=== PATIENT | female | born 1945 | race Caucasian/White ===

== ENCOUNTER 2025-05-06 08:41 | Outpatient (OUT) | payer MEDICARE, SELFPAY ==
--- OUTSIDE RECORDS SUMMARY | 2025-05-04 20:03 | XMS_ITS | Continuity of Care Document ---
Author Organization [facility] Address [address] [place] [address] Phone Care Team Providers Care Underlay Stitcher Name Role Phone Claude Horta MD Primary Care Provider [phone] Self, Referral Attending Provider Unavailable Care Teams Patient Care Team Team Status: Active Member Role/Relationship Status Dates Claude Horta MD Primary Care Provider Active Visit Care Team Team Status: Inactive Member Role/Relationship Status Dates Claude Horta MD Primary Care Provider Active Start: May 04, 2025 End: May 04, 2025Referral SelfAttending ProviderActiveStart: May 04, 2025 End: May 04, 2025 Chief Complaint and Reason for Visit Chief Complaint Admit Date Screening May 04, 2025 1:30pm Allergies, Adverse Reactions, Alerts Allergen Type Severity Reaction Last Updated Verified Status Sulfa (Sulfonamide Antibiotics) Allergy Unknown Rash May 22 2:53pm Yes Active Social History Smoking Status Status Start Date End Date Date of Observa tion Never smoked tobacco (finding) May 22, 2024 4:05pm Observation Status Observation Response Date of Response Legal Sex Female (finding) Sex Assigned At [facility] 1945 Problems Inactive/Resolved Problems Problem Diagnosis/Recorded Date Onset Date Stat us [facility] May 22, 2024 4:52pm Unknown Res olved Procedures Procedure Date Performed Status MM screening mammo BI w/CAD May 04, 2025 1:32pm completed Relevant Diagnostic Tests and/or Laboratory Data Diagnostic Imaging Reports Author Horacio Echevarria [facility]Report Date/TimeDecember 2024 1:51pm [facility] [address] [place] [address] [place] [id number] Mammography Report Signed Patient: Rebecca Pace MR#: [id number] : 1945 Acct:[id number] Age/Sex: 79 / F Adm Date: 5 Loc: [place] Room: Type: [facility] Attending Dr: Referral Self Ordering Provider: SELF,REFERRAL Date of Service: 05/04/25 Procedure(s): MM screening mammo BI w/CAD Accession Number(s): ([id number]) MM/MM screening mammo BI w/CAD: SCREENING Copies to: Claude Horta MD SELF,REFERRAL ~ BILATERAL Screening Full Field digital mammogram with 3-D imaging. Full field digital CC and MLO imaging performed. CAD utilized. COMPARISON: 04/22/2024 HISTORY: Annual screening BREAST COMPOSITION: The breast parenchyma is heterogeneously dense. BREAST CALCIFICATIONS: Benign calcifications present. VASCULAR CALCIFICATIONS: Present ARCHITECTURAL DISTORTION: None BREAST NODULE: None AXILLARY LYMPH NODES: Normal POSTSURGICAL CHANGES: None MM/MM screening mammo BI w/CAD IMPRESSION: No mammographic evidence of malignancy. Routine follow-up recommended in one year. RESULT CODE: 2 Benign Findings(s) DENSITY CODE: 3 (approximately 51-75% glandular) The breasts are heterogeneouslydense, which may obscure small masses. FOLLOW UP: 1YR THE FALSE-NEGATIVE RATE OF MAMMOGRAPHY IS APPROXIMATELY 10%. IMAGING OF A PALPABLE ABNORMALITY MUST BE BASED ON CLINICAL GROUNDS. PATIENT WAS ENTERED INTO A REMINDER SYSTEM WITH A TARGET DUE DATE FOR THE NEXT MAMMOGRAM. Impression dictated by: Horacio Echevarria M.D. 05/04/2025 1:51 PM Dictation Location: [facility] Dictated By: Horacio Echevarria DO 05/04/25 1349 Signed By: <Electronically signed by Horacio Echevarria DO in OV> 05/04/25 1351 Advance Directives Advance Directive Response Recorded Date/ Time Advance Directives No August 05 9:35am Insurance Providers Guarantor Ashanti Wagner Address [address] [place] [id number] Info.Home Phone: Coverage Status Update:2024 Payer Group Member ID Coverage Type Subscriber Relationship to Subscriber Effective Date Expiration Date Medicare [id number] Dennis , M Id: [id number] [address] [place] [facility] Home Phone: Email: [id number] MCR PFFS Id: [id number] Dennis , M Id: [id number] [address] [place] [facility] Home Phone: Email: [id number] Gold Plus HMO Id: [id number] Dennis , M Id: [id number] [address] [place] [address] Home Phone: Email: [id number] Health Claims [id number] Dennis , M Id: [id number] [address] [place] [address] Home Phone: Email: [id number] [place] [employer] Id: [id number] Dennis , M Id: [id number] [address] [place] [address] Home Phone: Email: [id number] Encounters Encounter Location(s) Arrival/Admit Date Discharge/Departure Date Discharge/Departure Disposition Provider(s) [facility] May 04, 2025 1:30pm May 04, 2025 1:31pm Discharged to home care or self care (routine discharge) REFERRAL SELF
--- OUTSIDE RECORDS SUMMARY | 2025-05-06 08:49 | XMS_ITS | Clinical Summary ---
Author Organization [employer] Address [id number] [address] [place] [address] Care Team Providers Care Hot Dog Vender Name Role Phone Claude Horta MD Primary Care Provider [phone] Allergies Active AllergyReactionsCriticalityNoted DateCommentsSulfa (Sulfonamide Antibiotics)03/10/2020 Itching, rash Medications MedicationSigDispense QuantityRefillsLast FilledStart DateEnd DateStatus acyclovir (ZOVIRAX) 400 mg tablet Take 400 mg by mouth daily.Active amLODIPine (NORVASC) 5 mg tablet Take 5 mg by mouth daily.Active benazepriL (LOTENSIN) 40 MG tablet Take 40 mg by mouth daily.Active loteprednol (LOTEMAX) 0.5 % ophthalmic suspension Administer 1 drop to both eyes 4 (four) times a day.Active levothyroxine (EUTHYROX) 50 MCG tablet Take 50 mcg by mouth daily.Active dorzolamide (TRUSOPT) 2 % ophthalmic solution Administer 1 drop to both eyes 3 (three) times a day.Active cycloSPORINE (RESTASIS) 0.05 % ophthalmic emulsion Administer 1 drop to both eyes 2 (two) times a day.Active Active Problems ProblemNoted DateDiagnosed DatePrimary localized osteoarthritis of right knee 1Primary osteoarthritis of left knee04/05/2020 Family History Medical HistoryRelationNameCommentsCancerFatherCancerMotherRelationNameStatus CommentsFatherMother Social History Tobacco UseTypesPacks/DayYears UsedDateSmoking Tobacco: NeverSmokeless Tobacco: NeverAlcohol UseStandard Drinks/WeekCommentsNever0 (1 standard drink = 0.6 oz pure alcohol)AUDIT-CAnswerDate RecordedQ1: How often do you have a drink containing alcohol?Never03/10/2020Average Number of DrinksNot on file03/10/2020 Frequency of Binge DrinkingNot on file03/10/2020Overall Financial Resource Strain (CARDIA)AnswerDate RecordedHow hard is it for you to pay for the very basics like food, housing, medical care, and heating?Not hard at all04/06/2020 PHQ-2AnswerDate RecordedTotal Ehzyc79506/06/2019PRAPARE - TransportationAnswerDate RecordedIn the past 12 months, has lack of transportation kept you from medical appointments or from getting medications?No04/06/2020In the past 12 months, has lack of transportation kept you from meetings, work, or from getting things needed for daily living?No04/06/2020ChildcareAnswerDate RecordedDo problems getting children's counselor make it difficult for you to work or study?No04/06/2020 EmploymentAnswerDate RecordedDo you need help finding a local career center and/or a training program?No04/06/2020Purpose - LifeAnswerDate RecordedPurpose and direction in azimYcseniq35/11/2021CommentsNoSex and Gender InformationValueDate RecordedSex Assigned at BirthNot on fileLegal SexFemale 02/24/2020 11:48 AM EDTGender IdentityNot on fileSexual OrientationNot on file Last Filed Vital Signs Vital SignReadingTime TakenCommentsBlood Blyozrke538/561 7:26 AM EDT Mfuje535203/16/2021 7:26 AM PGLLecoskwefdm09.4 ??C (97.5 ??F)03/16/2021 7:26 AM EDTRespiratory Tjzb1033 7:26 AM EDTOxygen Gqkfbtwlkd12%03/16/2021 7:26 AM EDTInhaled Oxygen Concentration--Rpycyj11.8 kg (145 lb)03/15/2021 2:22 PM EDT Yrqxxw979.1 cm (5' 5 )03/15/2021 2:22 PM EDTBody Mass Index24.131 2:22 PM EDT Plan of Treatment Health MaintenanceDue DateLast DoneCommentsDepression Guhapupmg71/12/1960Tobacco Gmyjsrquy83/12/1960DTaP,Tdap and Td Vaccines (1 - Tdap)1966Zoster (Shingles) Vaccine (1 of 2)1997Fall Risk Ambkdnayd39/12/2013RSV ( or age 60+ yrs) (1 - 1-dose 75+ series)3COVID-19 Vaccine (2 - 2024- season)Influenza Fefzlsd4701/18/2025 Goals GoalPatient Goal TypeAssociated ProblemsRecent ProgressPatient-Stated?Author home Renetta Grimes LSW Note: Evaluation of progress towards goal: had therapy, up in chair, doing well Medical Devices ImplantedTypeAreaManufacturerDevice IdentifierShelf Expiration DateModel / Serial / LotCmnt Bn Bio 40gm Rpl [id number] - [id number] - [id number] Implanted:Qty: 2 on 04/06/2020 [facility] KneeZimmer [id number] / [id number] / [id number] Bn Bio 40gm Rpl [id number] - Sna - [id number] Implanted:Qty: 2 on 03/15/2021 [facility]: KneeZimmer [id number] / NA / [id number] Tib 5 8mm Cr Fx Brng - [id number] - [id number] Implanted:Qty: 1 on 04/06/2020 [facility] ImplantLeft: KneeJJ [id number] / [id number] / [id number] Ptlr 32mm Medialized Dome - [id number] - [id number] Implanted:Qty: 1 on 04/06/2020 by Helio Mar, DO at [facility] ImplantLeft: KneeJJ [id number] / [id number] / [id number] Fem 5 Kn Lt Crcte Rtn - [id number] - [id number] Implanted:Qty: 1 on 04/06/2020 by Helio Mar DO at [facility] ImplantLeft: KneeJJ [id number] 11/16/[id number] / [id number] / [id number] Kn Fx Brng W Spcl Ins Construct Rpl [id number] - Sna - [id number] Implanted:Qty: 1 on 04/06/2020 by Helio Mar DO at [facility] ImplantLeft: KneeJJ [id number] / NA / NAImplant Kn Fx Brng W Spcl Ins Construct Rpl [id number] - Sna - [id number] Implanted:Qty: 1 on 03/15/2021 by Helio Mar DO at [facility] ImplantRight: KneeJJ [id number] / NA / NABsplt Tib 4 Kn Cmnt Fx Brng - [id number] - [id number] Implanted:Qty: 1 on 04/06/2020 [facility] KneeJJ [id number]/28/[id number] / [id number] / [id number] Tib 4 Kn Cmnt Fx Brng - Sna - [id number] Implanted:Qty: 1 on 03/15/20[facility] KneeJJ PVYDNZTBMPPO20/31/[id number] / NA / [id number] Femoral Cruciate Retaining Size 5 Cemented Implanted:Qty: 1 on [facility] XjjfGARIE39/31/[id number] / NA / [id number] Patella Medialized Dome Implanted:Qty: 1 on 03/15/2021 by Helio Mar DO at [facility]: GhzkPKHVG29/31/[id number] / NA / [id number] Tibial Insert Fixed Bearing Cruciate Retaining Implanted:Qty: 1 on 03/15/2021 [facility]: ZtxbJOYOL59/31/[id number] / NA / [id number] Insurance Advance Directives * Full Code (Latest Code Status on File) Date ActivatedDate CprfnlikagvVdzbhhgg30/27/2021 2:21 PM10 2:13 PM * Full Code Date ActivatedDate PoxgaurkvriZtbabibv49/18/2020 4:49 PM04/07/2020 6:17 PM Care Teams Team MemberRelationshipSpecialtyStart DateEnd Date Claude Horta MD PCP - GeneralFami Subwhrca13/8/20
--- OUTSIDE RECORDS SUMMARY | 2025-05-06 08:50 | XMS_ITS | Clinical Summary ---
Author Organization [facility] Address [address] [place] [address] Care Team Providers Care Hyperbaric Welder Diver Name Role Phone Claude Horta MD Primary Care Provider [phone] Allergies Active AllergyReactionsCriticalityNoted DateCommentsSulfa AntibioticsHives, Itching,MyxvYan7603/10/2020TimololItching,HmenXay6611/19/2023 Periorbital erythema both eyes (OU) - severe Medications MedicationSigDispense QuantityRefillsLast FilledStart DateEnd DateStatus amLODIPine (Norvasc) 5 MG tablet Take 5 mg by mouth in the morning.Active aspirin 325 MG tablet 1 (one) time each day at the same time.Active benazepril (Lotensin) 40 MG tablet Take 40 mg by mouth in the morning.Active ferrous sulfate 325 (65 Fe) MG tablet TAKE 1 TABLET BY MOUTH EVERY DAY for 90Active levothyroxine (Synthroid, Levoxyl) 50 MCG tablet Take 50 mcg by mouth in the morning.Active naproxen (Naprosyn) 250 MG tablet every 12 (twelve) hours.Active scopolamine (Transderm-Scop) 1 mg/72 hr patch 72 hour patch every 12 (twelve) hours08/01/2023ctive prednisoLONE acetate (Pred-Forte) 1 % ophthalmic suspension INSTILL 1 DROP INTO EACH EYE(S) IN THE MORNING, 1 DROP AT NOON, 1 DROP IN THE EVENING & 1 DROP BEFORE BEDTIME FOR 14 DAYS02/05/2024ctive acyclovir (Zovirax) 400 MG tablet PRN01/06/2024ctive Netarsudil Dimesylate (Rhopressa) 0.02 % solution Indications:Primary open angle glaucoma (POAG) of both eyes, mild stage Administer 1 drop into the left eye at bedtime 2.5 mL 614Active Latanoprost PF (Iyuzeh) 0.005 % solution Indications:Primary open angle glaucoma (POAG) of both eyes, mild stageINSTILL 1 DROP IN AFFECTED EYE(S) AT BEDTIME 30 each 3125Active Latanoprost PF (Iyuzeh) 0.005 % solution Indications:Primary open angle glaucoma (POAG) of both eyes, mild stage Administer 1 drop into affected eye(s) at bedtime 30 each 303/62233006/20/2024Discontinued Active Problems ProblemNoted DateDiagnosed DateTraumatic hematoma of wrist, left, subsequent farqpryxt51/11/2025llergic dermatitis of upper and lower lids of both eyes 07/29/2023cquired nstbieomlgnghx18/18/2023ge-related osteoporosis without current pathological ewfddslz77/18/2023rtificial knee joint coorpax1002/04/2023 Essential dyznfwjyekux07/18/2667Ntefnobuggwbspvbcjre08/18/2023Osteoporosis 02/04/2023ostmenopausal atrophic imwgefpqt34/18/2023rimary osteoarthritis of both knees02/04/2023Thyroid abnvnp1502/04/2023rimary open angle glaucoma (POAG) of both eyes, mild stage11/19/2022Neurotrophic cornea of both eyes11/19/2022 Keratoconjunctivitis sicca of both eyes not specified as Sjogren's011/19/2022 Blepharitis of upper and lower eyelids of both eyes11/19/2022Osteoarthritis of right knee03/15/2021 Resolved Problems ProblemNoted DateDiagnosed DateResolved DateLeft wrist pain Menopausal hot kuvgyjo79/Primary osteoarthritis of left knee Encounters DateTypeDepartmentCare DyoaFvkhsruysqt17/01/2025 1:45 PM ESTOffice Visit [facility] [address] [place] [address] [facility] [address] [place] [address] Clay Porter, DO Primary open angle glaucoma (POAG) of both eyes, mild stage (Primary Dx); Blepharitis of upper and lower eyelids of both eyes, unspecified type; Keratoconjunctivitis sicca of both eyes not specified as Sjogren'04/19/2025 Kpzevw8104/19/2025Refill [facility] [address] [place] [phone] Clay Porter, DO Primary open angle glaucoma (POAG) of both eyes, mild stagefrom Last 3 Months Family History Medical HistoryRelationNameCommentsHypertensionBrotherx3 brothersRelationName StatusCommentsBrotherFatherDeceasedMotherDeceased Social History Tobacco UseTypesPacks/DayYears UsedDateSmoking Tobacco: NeverSmokeless Tobacco: Never Tobacco Cessation:Counseling Given: Not Answered Alcohol UseStandard Drinks/WeekCommentsNever0 (1 standard drink = 0.6 oz pure alcohol)Caffeine intake: 1-2 cups per day soda/pop, coffeeAUDIT-CAnswerDate RecordedQ1: How often do you have a drink containing alcohol?Never02/07/2024Q2: How many drinks containing alcohol do you have on a typical day when you are drinking?Patient does not drink02/07/2024Q3: How often do you have six or more drinks on one occasion?Never02/07/2024HQ-2AnswerDate RecordedPatient Health Questionnaire-2 Uupxy5934CommentsNoSex and Gender Information ValueDate RecordedSex Assigned at BirthNot on fileLegal XdnRotphf92/15/2023 6:58 PM EDTGender IdentityNot on fileSexual OrientationNot on file Last Filed Vital Signs Vital SignReadingTime TakenCommentsBlood Akmqryev526/8402/07/2024 11:18 AM EDT Pulse--Temperature--Respiratory Rate--Oxygen Saturation--Inhaled Oxygen Concentration--Ycmrpj65 kg (141 lb)06/25/2024 8:31 AM MAWVcxybq594.3 cm (5' 3.5 )06/25/2024 8:31 AM ESTBody Mass Index24.59006/25/2024 8:31 AM EST Plan of Treatment DateTypeDepartmentCare Team (Latest Contact Info)Eawhtwtvemw96/02/2026 10:15 AM ESTOffice Visit [facility] [place] [facility] [address] [place] [address] Zachary Lauren, DO [address] [place] [address] 08/23/2025 1:30 PM EDTOffice Visit [facility] [address] [place] [phone] Clay Porter, DO [address] [place] [address] Health MaintenanceDue DateLast DoneCommentsPneumococcal Vaccine: 65+ Years (1 of 1 - PCV)1997COVID-19 Vaccine ( - 2024- season), 03/14/2021Influenza Vaccine (#1)2025 Insurance Care Teams Team MemberRelationshipSpecialtyStart Date Claude Horta MD [address] [place] [facility] [place] [phone] PCP - GeneralFamily Medicine11/19/22
[2025-05-06 09:09] LABS: Hematocrit 39.1 % (36.0-48.0); Hemoglobin 12.8 g/dL (12.0-16.0); Immature Granulocytes Abs Auto 0.03 10^3/uL (0.00-0.03); Immature Granulocytes Pct Auto 0.6 % (0.0-0.5); Lymphocytes Absolute Auto 1.2 10^3/uL (1.2-3.8); Mean Corpuscular HGB Conc 32.7 g/dL (29.9-35.2); Mean Corpuscular Hemoglobin 30.5 pg (26.7-34.0); Mean Corpuscular Volume 93.3 fL (81.0-99.0); Platelet Count 241 10^3/uL (150-450); Red Blood Count 4.19 10^6/uL (4.20-5.40); White Blood Count 5.0 10^3/uL (4.0-11.0)
[2025-05-06 10:44] LABS: Alanine Aminotransferase 16 U/L (14-59); Albumin Globulin Ratio 1.3; Albumin Level 3.8 g/dL (3.4-5.0); Alkaline Phosphatase 99 U/L (46-116); Anion Gap 10.1; Aspartate Amino Transferase 17 U/L (15-37); Blood Urea Nitrogen 10.0 mg/dL (7.0-18.0); Calcium 8.9 mg/dL (8.5-10.1); Carbon Dioxide 26.7 mmol/L (21.0-32.0); Chloride 108 mmol/L (98-107); Cholesterol 222 mg/dL (<=200); Estimated GFR (African America >60 (>=60 mL/min/1.73m^2); Estimated GFR (Non-African Ame >60 (>=60 mL/min/1.73m^2); Free T3 2.26 pg/mL (2.18-3.98); Globulin 2.9 g/dL; Glucose 92 mg/dL (74-106); HDL Cholesterol 75 mg/dL (40-60); Potassium 3.8 mmol/L (3.5-5.1); Sodium 141 mmol/L (136-145); Thyroid Stimulating Hormone 3.651 uIU/mL (0.358-3.740); Total Protein 6.7 g/dL (6.4-8.2); Triglycerides 36 mg/dL (<=150); VLDL CHOLESTEROL 7.2 mg/dL
[2025-05-06 10:50] LABS: Iron 91.0 ug/dL (50.0-170.0)
== END 2025-05-06 08:42 | disposition home or self-care (01) ==
LOC: LAB 08:47
PROVIDERS: PCP Family Medicine; Visit Provider Family Medicine
DX: E03.9 Hypothyroidism, unspecified (principal); I10 Essential (primary) hypertension; E78.5 Hyperlipidemia, unspecified; R73.09 Other abnormal glucose; Z12.12 Encounter for screening for malignant neoplasm of rectum; D64.9 Anemia, unspecified; E55.9 Vitamin D deficiency, unspecified
CPT/HCPCS: 36415; 80053; 80061; 82306; 83036; 83540; 84436; 84443; 84481; 85025